=== PATIENT | male | born 1940 | race Caucasian/White ===

== ENCOUNTER → 2016-12-19 | Outpatient (CLI) | payer OTHER | LOC: CIMAGING 09:21 | PROVIDERS: ATTEND Family Medicine | DX: J18.1 Lobar pneumonia, unspecified organism (principal); K86.89 Other specified diseases of pancreas; I70.0 Atherosclerosis of aorta; I25.10 Atherosclerotic heart disease of native coronary artery without angina pectoris; M48.14 Ankylosing hyperostosis [Forestier], thoracic region; Z85.118 Personal history of other malignant neoplasm of bronchus and lung | CPT/HCPCS: 71260-PO ==

== ENCOUNTER → 2017-05-08 | Outpatient (CLI) | payer OTHER | LOC: CIMAGING 10:19 | PROVIDERS: ATTEND Family Medicine | DX: R10.32 Left lower quadrant pain (principal); R10.31 Right lower quadrant pain | CPT/HCPCS: 76882-PO ==